=== PATIENT | female | born 1985 | race Caucasian/White ===

== ENCOUNTER 2016-12-23 14:45 | Emergency (ER) | payer OTHER ==
[2016-12-23 14:52] VITALS: BP 132/88
== END 2016-12-23 15:35 | disposition left against medical advice (07) ==
LOC: ER 14:45
DX: Z53.21 Procedure and treatment not carried out due to patient leaving prior to being seen by health care provider (principal)

== ENCOUNTER 2016-12-24 09:22 | Emergency (ER) | payer OTHER ==
[2016-12-24 10:07] LABS: ABSOLUTE BASOPHILS # (AUTO) 0.1 10^3/uL (0.0-0.2); ABSOLUTE EOSINOPHILS # (AUTO) 0.1 10^3/uL (0.0-0.6); ABSOLUTE LYMPHOCYTES (AUTO) 3.1 10^3/uL (0.5-4.7); ABSOLUTE MONOCYTES (AUTO) 0.4 10^3/uL (0.1-1.4); ABSOLUTE NEUT (AUTO) 2.9 10^3/uL (1.7-8.2); BASOPHILS % (AUTO) 1.1 % (0-2); EOSINOPHILS % (AUTO) 1.3 % (0-6); HEMATOCRIT 43.7 % (36.0-47.0); HEMOGLOBIN 14.9 g/dL (12.0-15.5); LYMPHOCYTES % (AUTO) 47.2 % (13-45); MEAN CORPUSCULAR HEMOGLOBIN 30.6 pg (27.0-33.4); MEAN CORPUSCULAR HGB CONC 34.2 g/dL (32.0-36.0); MEAN CORPUSCULAR VOLUME 89 fl (80-97); MONOCYTES % (AUTO) 5.7 % (3-13); RED BLOOD COUNT 4.89 10^6/uL (3.72-5.28); RED CELL DISTRIBUTION WIDTH 12.9 % (11.5-14.0); SEGMENTED NEUTROPHILS % (AUTO) 44.7 % (42-78); WHITE BLOOD COUNT 6.6 10^3/uL (4.0-10.5)
[2016-12-24 10:12] LABS: APPEARANCE,URINE CLEAR; BILIRUBIN,URINE NEGATIVE (NEGATIVE); GLUCOSE, URINE NEGATIVE (NEGATIVE); KETONES,URINE NEGATIVE (NEGATIVE); LEUKOCYTE ESTERASE,URINE NEGATIVE (NEGATIVE); NITRITE,URINE NEGATIVE (NEGATIVE); PROTEIN,URINE NEGATIVE (NEGATIVE); URINE SPECIFIC GRAVITY 1.001; UROBILINOGEN,URINE NEGATIVE mg/dL (<2.0)
--- NOTE | 2016-12-24 10:23 | ER Document Report ---
ED General - General Chief Complaint: Flank Pain Stated Complaint: FLANK PAIN Mode of Arrival: Ambulatory Information source: Patient Notes: 31 yr old female presents with complaints of left sided flank pain. Pt notes that she was diagnosed with a tumor , which has grown in size to 15mm on last evaluation in 2016. Pt admits to intermittent hematuria that has since cleared up. denies any fevers or chills, nausea or vomiting TRAVEL OUTSIDE OF THE [place] IN LAST 30 DAYS: No - HPI Onset: Last week Onset/Duration: Persistent Quality of pain: Achy Severity: Mild Pain Level: 1 Associated symptoms: Body/muscle aches Exacerbated by: Denies Relieved by: Denies Similar symptoms previously: Yes Recently seen / treated by doctor: Yes - Related Data Allergies/Adverse Reactions: latex [Latex] Allergy (Severe, Verified 12/24/16 10:00) RASH morphine [Morphine] Allergy (Intermediate, Verified 12/24/16 10:00) BURNING amoxicillin [Amoxicillin] Allergy (Verified 12/24/16 10:00) codeine [Codeine] Allergy (Verified 12/24/16 10:00) VOMITING hydromorphone HCl [From Dilaudid] Allergy (Verified 12/24/16 10:00) VOMITING ketorolac tromethamine [From Toradol] Allergy (Verified 12/24/16 10:00) Sulfa (Sulfonamide Antibiotics) Allergy (Verified 12/24/16 10:00) tape Allergy (Uncoded 12/24/16 10:00) Past Medical History - Social History Smoking Status: Current Every Day Smoker Cigarette use (# per day): Yes Chew tobacco use (# tins/day): No Smoking Education Provided: No Frequency of alcohol use: None Drug Abuse: None Family History: Other - Mother has a history of early diverticular disease. Patient has suicidal ideation: No Patient has homicidal ideation: No - Past Medical History Cardiac Medical History: Reports: Hx Hypercholesterolemia, Hx Hypertension Pulmonary Medical History: Reports: Hx Asthma, Hx Bronchitis, Hx Pneumonia Renal/ Medical History: Reports: Hx Kidney Stones - tumor on kidney. Denies: Hx Peritoneal Dialysis Past Surgical History: Reports: Hx Cardiac Catheterization - cardiac ablation, Hx Oral Surgery - cleft lip and palat repair - Immunizations Hx Diphtheria, Pertussis, Tetanus Vaccination: No Review of Systems - Review of Systems Notes: REVIEW OF SYSTEMS: CONSTITUTIONAL : Denies fever, chills, or sweats. Denies recent illness. EENT: Denies eye, ear, throat, or mouth pain or symptoms. Denies nasal or sinus congestion or discharge. Denies throat, tongue, or mouth swelling or difficulty swallowing. CARDIOVASCULAR: Denies chest pain. Denies palpitations or racing or irregular heart beat. Denies ankle edema. RESPIRATORY: Denies cough, cold, or chest congestion. Denies shortness of breath, difficulty breathing, or wheezing. GASTROINTESTINAL: Admits to left flank pain GENITOURINARY: difficulty urinating FEMALE GENITOURINARY: Denies vaginal bleeding, heavy or abnormal periods, irregular periods. Denies vaginal discharge or odor. MUSCULOSKELETAL: Denies back or neck pain or stiffness. Denies joint pain or swelling. SKIN: Denies rash, lesions or sores. HEMATOLOGIC : Denies easy bruising or bleeding. LYMPHATIC: Denies swollen, enlarged glands. NEUROLOGICAL: Denies confusion or altered mental status. Denies passing out or loss of consciousness. Denies dizziness or lightheadedness. Denies headache. Denies weakness or paralysis or loss of use of either side. Denies problems with gait or speech. Denies sensory loss, numbness, or tingling. Denies seizures. PSYCHIATRIC: Denies anxiety or stress. Denies depression, suicidal ideation, or homicidal ideation. ALL OTHER SYSTEMS REVIEWED AND NEGATIVE. Dictation was performed using [employer] voice recognition software PHYSICAL EXAMINATION: GENERAL: Well-appearing, well-nourished and in no acute distress. HEAD: Atraumatic, normocephalic. EYES: Pupils equal round and reactive to light, extraocular movements intact, conjunctiva are normal. ENT: Nares patent, oropharynx clear without exudates. Moist mucous membranes. NECK: Normal range of motion, supple without lymphadenopathy LUNGS: Breath sounds clear to auscultation bilaterally and equal. No wheezes rales or rhonchi. HEART: Regular rate and rhythm without murmurs ABDOMEN: Soft, mild left CVA tenderness no abdominal tenderness Female : deferred Musculoskeletal: Normal range of motion, no pitting or edema. No cyanosis. NEUROLOGICAL: Cranial nerves grossly intact. Normal speech, normal gait. Normal sensory, motor exams PSYCH: Normal mood, normal affect. SKIN: Warm, Dry, normal turgor, no rashes or lesions noted. Physical Exam - Vital signs Vitals: Temp Pulse Resp BP Pulse Ox 97.4 F 86 16 140/86 H 100 12/24/16 09:26 12/24/16 09:26 12/24/16 09:26 12/24/16 09:26 12/24/16 09:26 Course - Re-evaluation Re-evalutation: 12/24/16 10:23 CT is pending otherwise patient looks well in no distress 12/24/16 12:32 Stable cyst is noted on the left kidney otherwise no acute abnormality, patient was shown images and given report as well she will have follow-up with urologist nonetheless stable for discharge After performing a Medical Screening Examination, I estimate there is LOW risk for ACUTE APPENDICITIS, BOWEL OBSTRUCTION, ACUTE CHOLECYSTITIS, PERFORATED DIVERTICULITIS, INCARCERATED HERNIA, PANCREATITIS, PELVIC INFLAMMATORY DISEASE, PERFORATED ULCER, ECTOPIC , or TUBO-OVARIAN ABSCESS, thus I consider the discharge disposition reasonable. Also, there is no evidence or peritonitis , sepsis, or toxicity. The patient and I have discussed the diagnosis and risks , and we agree with discharging home with close follow-up with the understanding that symptoms and presentations can change. We also discussed returning to the Emergency Department immediately if new or worsening symptoms occur. We have discussed the symptoms which are most concerning (e.g., bloody stool, fever, changing or worsening pain, vomiting) that necessitate immediate return. - Vital Signs Vital signs: Temp Pulse Resp BP Pulse Ox 97.4 F 86 16 140/86 H 100 12/24/16 09:26 12/24/16 09:26 12/24/16 09:26 12/24/16 09:26 12/24/16 09:26 - Laboratory Result Diagrams: 12/24/16 09:40 12/24/16 09:40 Laboratory results interpreted by me: 12/24/16 12/24/16 09:40 09:40 Lymphocytes % 47.2 H Albumin 5.1 H - Diagnostic Test Radiology reviewed: Image reviewed, Reports reviewed Discharge - Discharge Clinical Impression: Left flank pain, Mass of left kidney Condition: Stable Disposition: HOME, SELF-CARE Instructions: Flank Pain ([facility]) Additional Instructions: Please follow-up with your urologist for reevaluation or return immediately if there are any other concerns
[2016-12-24] MEDS ORDERED: OXYCODONE-ACETAMINOPHEN 5-325 MG TABLET PO ONE (10:27)
[2016-12-24 10:28] LABS: ALANINE AMINOTRANSFERASE 41 U/L (9-52); ALBUMIN 5.1 g/dL (3.5-5.0); ALKALINE PHOSPHATASE 62 U/L (38-126); ANION GAP 11 (5-19); ASPARTATE AMINO TRANSFERASE 22 U/L (14-36); BILIRUBIN,DIRECT 0.3 mg/dL (0.0-0.4); BILIRUBIN,TOTAL 0.9 mg/dL (0.2-1.3); BLOOD UREA NITROGEN 7 mg/dL (7-20); CALCIUM 9.9 mg/dL (8.4-10.2); CARBON DIOXIDE 26 mmol/L (22-30); CHLORIDE 105 mmol/L (98-107); CREATININE RESULT 0.56 mg/dL (0.52-1.25); GLUCOSE 97 mg/dL (75-110); POTASSIUM 4.3 mmol/L (3.6-5.0); SODIUM 142.2 mmol/L (137-145); TOTAL PROTEIN 8.1 g/dL (6.3-8.2)
[2016-12-24 12:56] VITALS: BP 126/84
== END 2016-12-24 12:50 | disposition home or self-care (01) ==
LOC: ER 09:22
DX: N28.89 Other specified disorders of kidney and ureter (principal); R10.9 Unspecified abdominal pain; R31.9 Hematuria, unspecified; F17.210 Nicotine dependence, cigarettes, uncomplicated
CPT/HCPCS: 36415; 76380; 80053; 81001; 81025; 85025; 99284

== ENCOUNTER → 2020-06-24 | Outpatient (CLI) | payer OTHER ==
--- NOTE | 2020-06-24 13:08 | RADIOLOGY REPORT (SQ) ---
EXAM DESCRIPTION: MRI CERVICAL SPINE WITHOUT IMAGES COMPLETED DATE/TIME: 06/24/2020 12:28 pm REASON FOR STUDY: M54.12 RADICULOPATHY, CERVICAL REGION M54.12 RADICULOPATHY, CERVICAL REGION COMPARISON: None. TECHNIQUE: Sagittal and Axial imaging includes T1, T2, STIR and gradient echo sequences. LIMITATIONS: None. FINDINGS: ALIGNMENT: Normal. VERTEBRAE: Intact. BONE MARROW: Normal. No marrow replacement or reactive changes. DISCS: Normal. No significant abnormal signal or loss of height. HARDWARE: None in the spine. CORD AND BASE OF BRAIN: There is a prominent syrinx that begins at the inferior aspect of C6 and exte nds inferiorly to the inferior aspect of T1. Maximum diameter is 5 mm. SOFT TISSUES: No soft tissue masses. C1-C2: No significant spinal stenosis. C2-C3: No significant spinal stenosis or exit foraminal stenosis. C3-C4: No significant spinal stenosis or exit foraminal stenosis. C4-C5: No significant spinal stenosis or exit foraminal stenosis. C5-C6: Broad-based disc/osteophyte complex there is asymmetrical on the left and deforms the left maryam e of the spinal cord. No foraminal stenosis. C6-C7: No significant spinal stenosis or exit foraminal stenosis. C7-T1: No significant spinal stenosis or exit foraminal stenosis. UPPER THORACIC: Incompletely imaged. No significant spinal stenosis or exit foraminal stenosis. OTHER: No other significant finding. IMPRESSION: 1. There is a prominent syrinx as described. 2. There is an asymmetric disc/ osteophyte complex at C5-6 that deforms the left side of the spinal cord. TECHNICAL DOCUMENTATION: JOB ID: [id number] [employer]- All Rights Reserved Reading location - IP/workstation name: [email or web address]
== END ==
LOC: RAD 11:43
PROVIDERS: ATTEND Physician Assistant
DX: M54.12 Radiculopathy, cervical region (principal)
CPT/HCPCS: 72141

== ENCOUNTER → 2020-07-30 | Outpatient (CLI) | payer OTHER ==
--- NOTE | 2020-07-30 13:07 | RADIOLOGY REPORT (SQ) ---
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 TECHNIQUE: Multiplanar imaging includes non-contrasted T1, T2, FLAIR, and diffusion with ADC map seq uences. Images stored on PACS. LIMITATIONS: None. FINDINGS: ANATOMY: Downward protrusion of the cerebellar tonsils greater than 5 mm below the foramen magnum. CSF SPACES: Normal in size and contour. No hemorrhage. CEREBRUM: Sulci and gyri normal in size and contour. Normal white matter signal on FLAIR imaging. No evidence of hemorrhage, mass, or extraaxial fluid collection. POSTERIOR FOSSA: No signal alteration. No hemorrhage. No edema, masses or mass effect. Internal rj tory canals, cerebello-pontine angles, mastoids normal. DIFFUSION IMAGING: Negative for acute or sub-acute infarction. ORBITS: No masses. Globes normal. PARANASAL SINUSES: No fluid levels. Mucosa normal. OTHER: No other significant finding. IMPRESSION: Arnold-Chiari 1 malformation. No acute findings. EVIDENCE OF ACUTE STROKE: NO. TECHNICAL DOCUMENTATION: JOB ID: [id number] 2010 [employer]- All Rights Reserved Reading location - IP/workstation name: [email or web address]
--- OUTSIDE RECORDS SUMMARY | 2020-07-31 15:19 | XMS REPORT ---
:1985 Author Organization Replaced by [facility] Address [address] [address] Care Team Providers Name Role Phone Unavailable Unavailable Unavailable Allergies, Adverse Reactions, Alerts Allergy Allergy Status Severity Reaction(s) Onset Inactive Treating C omments Name Type Date Date Clinician Adhesive Allergy to Active Tape substance Latex Allergy to Active substance Morphine Allergy to Active substance Oxycodone Allergy to Active substance Sulfa Allergy to Active (Sulfonamid substance e Antibiotics ) Medications Ordered Filled Start Stop Current Ordering Indication Dosage Frequency Signature Comments Components Medication Medication Date Date Medication? Clinician (SIG) Name Name methocarbam No methocarba ol 750 mg mol 750 mg tablet TAKE tablet 1 TABLET BY TAKE 1 [address]OUTE TABLET BY 3 TIMES ORAL ROUTE EVERY DAY 3 TIMES NEEDED EVERY DAY FOR NEEDED PAIN,SEVERE FOR 7 10 ON PAIN,SEVER PAIN SCALE E 7 10 ON PAIN SCALE naproxen No naproxen 500 mg 500 mg tablet TAKE tablet 1 TABLET BY TAKE 1 MOUTH TWICE TABLET BY A DAY WITH MOUTH FOOD TWICE A NEEDED FOR DAY WITH PAIN FOOD NEEDED FOR PAIN tramadol 50 No 1 Q6H tramadol mg tablet 50 mg Take 1 tablet tablet Take 1 every 6 tablet hours by every 6 oral route hours by as needed oral route for 10 as needed days. for 10 days. hydrocodone No hydrocodon 10 e 10 mg-acetamin mg-acetami ophen 325 nophen 325 mg tablet mg tablet Take 1 tab Take 1 tab q4-6 hrs q4-6 hrs prn pain prn pain Problems Condition Condition Condition Status Onset Resolution Last Treatin g Comments Name Details Category Date Date Treatment Clinician Date Long-term Long-term Problem Active drug Drug -17 therapy Therapy 00:00: 00 Low back Low Back Problem Active pain Pain 1- 00:00: 00 Cigarette Cigarette Problem Active smoker Smoker Spondylolis Spondylolis Problem Active thesis thesis Procedures Procedure Date / Time Performed Performing Clinician Devic e XR, lumbar spine 2020-07-28 00:00:00 MRI, lumbar spine, w/o contrast 2020-07-28 00:00:00 HEAD SURGERY PROCEDURE 2014-08-18 00:00:00 Other 2013-09-18 00:00:00 Other 1993-09-18 00:00:00 LIP SURGERY PROCEDURE 1984 00:00:00 Results This patient has no known results. Assessments Condition Name Status Diagnosis Date Treating Clinici an Lumbar spondylosis Active 2020-07-28 09:01:08 Low back pain Active 2020-07-28 08:58:49 Lumbar radiculopathy Active 2020-07-28 09:01:14 Lumbar spondylolisthesis Active 2020-07-28 09:01:29 Neck pain Active 2020-07-21 13:47:28 Cervical radiculopathy Active 2020-07-21 13:47:34 Neck pain Active 2020-06-29 10:31:34 Encounters Start End Encounter Admission Attending Care Care Encounter Date/Time Date/Time Type Type Clinicians Facility Department ID 2020-07-28 [id number] 00:00:00 00:00:00 álvaro Umaña P.A. , P.A. [id number] PA-C: [address] [place] [phone], Ph. 2020-07-21 2020-07-21 [facility] 8833 [id number] 00:00:00 00:00:00 álvaro Morrison P.A. , P.A. [id number] PT: [address] [phone], Ph. 2020-06-29 2020-06-29 [facility] 8833 [id number] 00:00:00 00:00:00 SAMIR MarksC: Yarelis rea , P.A. [address] [place] [phone], Ph. Plan of Treatment Planned Activity Planned Date Details Comments Future Appointment 2020-08-06 09:30:00 Shante Morrison, [address] [place] [address]. [address], [place] [id number] Future Appointment 2020-08-06 09:00:00 Felicitas Middleton, [address] [facility]; [place]. [address] [address] Future Appointment 2020-08-03 09:30:00 Shante Prince, [address] [facility]; [facility]. [address] [address] Social History Smoking Status Start Date Stop Date Former Smoker Vital Signs Vital Name Observation Time Observation Value Comments Height 2020-07-28 00:00:00 62 [in_i] BMI (Body Mass Index) 2020-07-28 00:00:00 30.2 kg/m2 Body Weight 2020-07-28 00:00:00 165 [lb_av] Height 2020-06-29 00:00:00 62 [in_i] BMI (Body Mass Index) 2020-06-29 00:00:00 30.2 kg/m2 Body Weight 2020-06-29 00:00:00 165 [lb_av] Hospital Discharge Instructions 1. Neck pain neck pain: care instructions Medrol (Jordan) 4 mg tablets in a dose pack physical therapy neck referral - FOLLOW UP WITH [facility] AFTER PT physical therapy back referral - FOLLOWUP WITH [facility] AFTER PT tramadol 50 mg tablet Discussion Note: None recorded.
== END ==
LOC: RAD 09:44
PROVIDERS: ATTEND Physician Assistant
DX: G95.0 Syringomyelia and syringobulbia (principal); G93.5 Compression of brain
CPT/HCPCS: 70551